=== PATIENT | male | born 1945 | race African-American/Black ===

== ENCOUNTER → 2021-04-22 | Outpatient (CLI) | payer BC ==
[~2021-04-22] MED LIST: APAP650 PO; ASA81BEC PO; CENTRUM SILVER1 EAC7 PO; FLOMAX0.4 MG PO; IRBESARTAN150 MG PO; LIPITOR 40 MG T40 M1 PO; METOPROLOL SUCC50 MG PO
[2021-04-22 14:15] LABS: INR 1.04; PROTIME 11.3 Seconds (10.5-12.1)
[2021-04-22 15:02] LABS: URINE BILIRUBIN NEGATIVE (Negative); URINE BLOOD NEGATIVE (Negative); URINE CLARITY CLEAR; URINE COLOR YELLOW; URINE GLUCOSE-RANDOM* NEGATIVE (Negative); URINE KETONES NEGATIVE (Negative); URINE LEUKOCYTES-REFLEX NEGATIVE (Negative); URINE NITRITE-REFLEX NEGATIVE (Negative); URINE PROTEIN (DIPSTICK) NEGATIVE (Negative); URINE SPECIFIC GRAVITY 1.025 (1.005-1.035); URINE UROBILINOGEN 0.2 E.U./dl (0.2-1.0)
== END ==
LOC: PAC 12:41
PROVIDERS: ATTEND Orthopaedic Surgery
DX: Z01.812 Encounter for preprocedural laboratory examination (principal); M17.11 Unilateral primary osteoarthritis, right knee

== ENCOUNTER 2021-04-29 09:38 | Observation (INO) | payer BC ==
[~2021-04-29] VITALS: Ht 175.3 cm; Wt 120.2 kg
[2021-04-29 11:10] VITALS: BP 124/62
[2021-04-29 16:43] VITALS: BP 151/85
--- NOTE | 2021-04-29 18:18 | NUR ---
ASSUMED PT CARE FROM PACU AT 1652. PT IS ALERT & ORIENTED X4. PT HAS IV SITE ON L HAND 20 GAUGE RUNNING D5 1/2 NS @100ML/HR. PT HAD R TOTAL KNEE REPLACEMENT. PT HAS POLAR PACK, BEE SIERRA KNEE HIGH, SCD. PT RATED PAIN 0/10 DURING ADMISSION. LAST BM WAS YESTERDAY. PT IS FROM HOME WITH SON. FINISHED ADMISSION. CALLED PT DAUGHTER(DPOA) AND INFORMED PT IS CURRENTLY AT THE FLOOR. PT TOLERATED DIET WELL. WILL CONTINUE TO MONITOR PT. FOLLOW POC.
[2021-04-29 19:34] VITALS: BP 144/88
--- NOTE | 2021-04-30 02:21 | NUR ---
PT IS A/O X4 AND IS UP WITH ASSISTANCE. VSS. AFEBRILE. MEDICATIONS GIVEN PER MAR. DRSG TO RIGHT KNEE IS C/D/I. POLAR PACK, SCD'S, AND BEE HOSE IN PLACE. FALL PRECAUTIONS IN PLACE, CALL LIGHT IS WITHIN REACH.
[2021-04-30 05:01] VITALS: BP 129/75
[2021-04-30 07:41] VITALS: BP 147/78
[2021-04-30 09:29] VITALS: BP 147/48
--- NOTE | 2021-04-30 15:39 | NUR ---
ASSESSMENT: CM REVIEWED CHART AND SPOKE WITH PATIENT AT THE BEDSIDE. PT IS S/P TOTAL KNEE REPLACEMENT. PT REPORTS LIVING IN A HOUSE WITH HIS SONS. PT REPORTS HAVING 2 STEPS TO ENTER THE HOME AND NO STEPS HE HAS TO USE ONCE INSIDE. PT REPORTS HAVING A WALKER AT HOME. PT REPORTS HIS SON CAN ASSIST HIM NEEDED AND REPORTS THAT HIS DAUGHTER IS ALSO VERY SUPPORTIVE. PT REPORTS HAVING NO FURTHER NEEDS FROM CM. PT HAS ORDERS TO DISCHARGE HOME TODAY NO NEEDS.
--- NOTE | 2021-04-30 16:23 | NUR ---
Assumed pt care this am, vs stable. Right knee dresing c/d/i, with polar ice pack and jay dressing in place.Diet and medications are tolerated well.DC instructions given to the pt, as per the pt prescriptions were already sent to their pharmacy by the MD though in the dc papers no new additional medications was given. IV removed, picked up by daughter. PT is now dc.
--- NOTE | 2021-05-04 10:05 | O ---
[facility] [place] [address] OPERATIVE REPORT Name: FREDDY RENEE Room #: 447-P [facility] Mayur Rice#: [id number] Admission: 04/29/21 Attend Phys: Nick Melo MD Discharge: 04/30/21 Date of : 45 Report #: [id number] THIS REPORT FOR: cc: Jorge L Coulter David J. DO Abraham,Nick Dior MD ~ DATE OF SERVICE: 04/29/2021 PREOPERATIVE DIAGNOSIS: Right knee osteoarthritis. POSTOPERATIVE DIAGNOSIS: Right knee osteoarthritis. PROCEDURE: Right total knee arthroplasty using Navio robotic assistance. SURGEON: Nick Melo MD STRETCHER HELPER: Liz Snow PA-C INDICATION FOR STRETCHER HELPER: Throughout the case, extensive retraction, manipulation of the knee was required. This was afforded to me by my television production assistant. ANESTHESIA: LMA with adductor canal block. IMPLANTS: [employer] size 6 Journey II BCS cobalt chrome femur, a size 5 tibia, size 9 constrained polyethylene and size 35 patella. TOURNIQUET TIME: 51 minutes. ESTIMATED BLOOD LOSS: 25 mL. COMPLICATIONS: None. SPECIMENS: None. CONDITION UPON LEAVING THE OR: Stable. INDICATIONS FOR PROCEDURE: The patient is a 75-year-old gentleman with right knee osteoarthritis. He had failed conservative measures for this and after discussion with him, he elected for right total knee arthroplasty. DESCRIPTION OF PROCEDURE: Risks, benefits, alternatives, complications were discussed in detail with the patient including but not limited to risk of anesthesia, risk of damage to nerves, arteries, blood vessels, risk for infection, bleeding, risk for continued knee pain, need for reoperation. Informed consent was obtained from the patient. Right knee was appropriately marked in preoperative holding area. IV Ancef was given for preoperative [address] [address] OPERATIVE REPORT Name: FREDDY RENEE Room #: 447-P [facility]OM[facility] Rice#: [id number] Admission: 04/29/21 Attend Phys: Nick Melo MD Discharge: 04/30/21 Date of : 45 Report #: [id number] antibiotics. Adductor canal block was placed by anesthesia. He was brought to the operating room and placed in the supine position on the operating room table. LMA anesthesia was induced without complication. Tourniquet was placed on the right thigh. Right lower extremity was prepped and draped in normal sterile fashion. Timeout was performed properly identifying the patient and procedure as well as the instrumentation and implants. All in the operating room in agreement. Right lower extremity was exsanguinated and tourniquet was inflated. Tourniquet time was 51 minutes. Standard midline approach to the knee was made with 10 blade through the skin. Dissection was taken down sharply to the fascia and deep flaps were developed medially and laterally. Fresh 10 blade was used to make a medial parapatellar arthrotomy and the knee was inspected. There was severe tricompartmental osteoarthritis. ACL and PCL were removed sharply. Reference pins were placed in the femur and the tibia. The knee was then digitally mapped using Sinch robotic system. Intraoperative plan was made. We sized the size 6 femur, the size 5 tibia and a 10 spacer. After acceptance of the intraoperative plan, the distal femoral cut was made with Navio bur. Distal femoral cutting block was pinned in place and chamfer cuts were made. Attention was turned to the tibia. Remainder of the menisci removed with Bovie cautery. Tibial resection guide was pinned in place using Navio for placement and tibial resection was made. Flexion and extension gaps were checked and found to be tight medially in extension. Medial osteophyte was removed from the tibia, and a limited medial release was performed using the pie crust technique. This balanced the knee well. Tibia sized, found to be a size 5. A size 5 tibial trial was placed, pinned and punched. A size 6 femoral trial was placed and box cut was made. This was then trialed with a size 9 polyethylene, size 9 polyethylene demonstrated 1-2 mm laxity medially and laterally throughout range of motion in deep flexion. He did demonstrate up to 4 mm of laxity laterally and it was felt we could make up for this with a constrained implant. A 9 mm of bone was resected from the posterior surface of the patella and a size 35 patellar trial button was placed. The knee was taken through range of motion, found to be stable, found to have good patellar tracking. Trial components were removed. Bone ends were thoroughly irrigated with normal saline. Final size 5 tibia, size 6 Journey II BCS cobalt chrome femur and a size 35 patella were cemented in place using standard cementation techniques. While the cement cured, a periarticular injection consisting of morphine, ropivacaine, epinephrine, Toradol was placed around the knee joint capsule. After the cement cured, tourniquet was deflated. Hemostasis was obtained with Bovie cautery. A final size 9 constrained polyethylene was placed. A gram of vancomycin was placed deep in the joint. The fascia was closed with 0 Vicryl. The skin was closed with 2-0 Vicryl, skin staple and a [address] [address] OPERATIVE REPORT Name: FREDDY RENEE Room #: 447-P [facility] Mayur Rice#: [id number] Admission: 04/29/21 Attend Phys: Nick Melo MD Discharge: 04/30/21 Date of : 45 Report #: [id number] TOOTIE dressing was applied. The patient tolerated this procedure well and went to recovery room under care of anesthesia postoperatively. <ELECTRONICALLY SIGNED> By: Nick Melo MD 05/04/21 1005 [id number] Nick Melo MD /nt
== END 2021-04-30 16:47 | disposition home or self-care (01) ==
LOC: OR 09:38 → 4S 16:29 → OR 16:30 → 4S 04-30 16:47
PROVIDERS: ADMIT Orthopaedic Surgery; ATTEND Orthopaedic Surgery
DX: M17.11 Unilateral primary osteoarthritis, right knee (principal); Z20.822 Contact with and (suspected) exposure to COVID-19; Z79.899 Other long term (current) drug therapy
CPT/HCPCS: 27447; S2900; 10102; 50010; 50101; 50415; 50954; 51130; 51225; 51320; 51412; 53000; 53078; 56527; 56528; 57095; 57103; 57110; 57127; 57180; 58239; 62110; 62900; 64039; 64043; 70005